=== PATIENT | female | born 1995 | race Caucasian/White ===

== ENCOUNTER → 2016-12-13 | Outpatient (REF) | payer OTHER | LOC: M SFHCLERA 17:19 | PROVIDERS: ATTEND Physician Assistant | DX: J02.9 Acute pharyngitis, unspecified (principal) ==

== ENCOUNTER → 2017-12-23 | Outpatient (CLI) | payer OTHER ==
[2017-12-23 19:05] LABS: CORTISOL BASELINE 15.2 UG/DL (4.3-22.4)
[2017-12-23 19:15] LABS: FREE T4 0.94 NG/DL (0.76-1.46); THYROID STIMULATING HORMONE 0.115 uIU/ML (0.358-3.740)
[2017-12-26 00:07] LABS: THYROID STIMULATING IMMUNOGLOB <0.10 IU/L (0.00-0.55)
== END ==
LOC: M LRY 12:58
DX: R94.6 Abnormal results of thyroid function studies (principal)
CPT/HCPCS: 84443

== ENCOUNTER → 2018-01-07 | Outpatient (CLI) | payer OTHER | LOC: M RAD 08:32 | DX: E05.90 Thyrotoxicosis, unspecified without thyrotoxic crisis or storm (principal) ==

== ENCOUNTER → 2019-12-20 | Outpatient (CLI) | payer OTHER ==
[2019-12-20 15:51] LABS: FREE T4 0.96 NG/DL (0.76-1.46); THYROID STIMULATING HORMONE 0.654 uIU/ML (0.358-3.740)
== END ==
LOC: M PLALAB 12:13
PROVIDERS: ATTEND Nurse Practitioner Family
DX: R94.6 Abnormal results of thyroid function studies (principal)

== ENCOUNTER → 2020-10-30 | Outpatient (REF) | payer OTHER, SELFPAY, MEDICAID ==
[2020-10-30 21:34] LABS: APPEARANCE, URINE HAZY (CLEAR); BACTERIA, URINE AUTO 2+ (NEGATIVE); BILIRUBIN, URINE AUTO NEGATIVE (NEGATIVE); BLOOD, URINE BLOOD NEGATIVE (NEGATIVE); COLOR, URINE YELLOW (YELLOW); GLUCOSE, URINE (UA) AUTO NEGATIVE (NEGATIVE); KETONE, URINE AUTO NEGATIVE (NEGATIVE); LEUKOCYTE ESTERASE, URINE AUTO 2+ (NEGATIVE); NITRITE, URINE AUTO POSITIVE (NEGATIVE); PROTEIN, URINE AUTO NEGATIVE (NEGATIVE); RBC, URINE AUTO 2 /HPF (0-3); SQUAMOUS EPITHELIAL CELL UR AU 2 /HPF (0-6); UROBILINOGEN, URINE AUTO 0.2 mg/dL (0.0-2.0); WBC, URINE AUTO 14 /HPF (0-3)
== END ==
LOC: M LAB REF 21:23
PROVIDERS: ATTEND Physician Assistant Medical
DX: N39.0 Urinary tract infection, site not specified (principal)

== ENCOUNTER → 2020-11-02 | Outpatient (CLI) | payer OTHER ==
--- NOTE | 2020-11-02 10:57 | REP ---
INDICATION: MEMORY LOSS, PTSD. COMPARISON: None. TECHNIQUE: Axial T1, T2, FLAIR, gradient echo and diffusion-weighted images obtained. Postcontrast multiplanar T1 weighted images obtained. FINDINGS: No evidence of restricted diffusion to suggest acute infarction. No gradient echo susceptibility to suggest hemorrhage. The ventricles and extra-axial CSF spaces are within normal limits. No mass effect or midline shift. No abnormal fluid collections. Paranasal sinuses and mastoid air cells are clear. Following contrast, no abnormal enhancement. IMPRESSION: Normal examination. <Electronically signed by Tony Swanson > 11/02/20 [id number]
== END ==
LOC: M PLARAD 08:08
PROVIDERS: ATTEND Nurse Practitioner Family
DX: R41.3 Other amnesia (principal); F43.12 Post-traumatic stress disorder, chronic; F51.04 Psychophysiologic insomnia

== ENCOUNTER → 2021-04-10 | Outpatient (CLI) | payer OTHER ==
[~2021-04-10] MED LIST: ISOVUE-370 76% 100ML VIAL As Ordered ONE
--- NOTE | 2021-04-10 13:30 | REP ---
INDICATION: THYROTOXICOSIS / ABD PAIN. COMPARISON: None. TECHNIQUE: Real-time sonographic evaluation of thyroid performed. FINDINGS: Right lobe of thyroid measures 5.2 x 1.7 x 1.6 cm and left lobe 4.8 x 1.6 x 1.7 cm.There is a heterogeneous isoechoic nodule in the right upper pole measuring 5 mm in diameter. In the right lower pole there is a heterogeneous predominantly solid nodule which is hypoechoic measuring 1.4 x 1.0 x 1.0 cm. IMPRESSION: Two solid nodules right lobe, the larger measures 1.4 cm maximally and is located in the lower pole. According to TI-RADS criteria, this is a TR 4 lesion. With a maximum diameter of 1.4 cm, six-month follow-up exam is recommended. <Electronically signed by Griffin Her > 04/10/21 [id number]
--- NOTE | 2021-04-10 13:33 | REP ---
INDICATION: THYROTOXICOSIS / ABD PAIN. COMPARISON: Multiple the latest 04/01/2011 without contrast TECHNIQUE: Standard helical technique before and after the intravenous administration of 100 cc Isovue 370 FINDINGS: The lung bases are clear and unchanged. The pre contrast enhanced portion examination shows a patent splenic densities to be within normal limits. There is no nephroureterolithiasis, hydronephrosis, or proximal hydroureter. Contrast-enhanced portion examination shows the liver, gallbladder, spleen, pancreas, adrenal glands, and kidneys to be within normal limits. The abdominal aorta and para-aortic regions are within normal limits. There is no mass or adenopathy. There is no free fluid or free air. The bowel loops and the mesenteries are within normal limits. Bone window technique throughout the examination shows the osseous structures to be within normal limits. IMPRESSION: CT findings are within normal limits. <Electronically signed by Sergei Jimenez > 04/10/21 [id number]
== END ==
LOC: M RAD 12:32
PROVIDERS: ATTEND Nurse Practitioner Family
DX: E05.90 Thyrotoxicosis, unspecified without thyrotoxic crisis or storm (principal); R10.84 Generalized abdominal pain
CPT/HCPCS: 74170; 76536; Q9967

== ENCOUNTER → 2021-06-18 | Outpatient (REF) | payer OTHER, MEDICAID | LOC: M LAB REF 21:56 | PROVIDERS: ATTEND Physician Assistant Medical | DX: R50.9 Fever, unspecified (principal); R05.9 Cough, unspecified ==

== ENCOUNTER → 2022-01-15 | Outpatient (CLI) | payer OTHER | LOC: M RAD 10:45 | PROVIDERS: ATTEND Nurse Practitioner Family | DX: E04.2 Nontoxic multinodular goiter (principal) ==

== ENCOUNTER → 2022-01-31 | Outpatient (CLI) | payer OTHER | LOC: M RAD 13:08 | PROVIDERS: ATTEND Obstetrics & Gynecology | DX: N93.9 Abnormal uterine and vaginal bleeding, unspecified (principal) ==

== ENCOUNTER → 2022-01-31 | Outpatient (CLI) | payer OTHER | LOC: M RAD 13:09 | PROVIDERS: ATTEND Nurse Practitioner Family | DX: R22.1 Localized swelling, mass and lump, neck (principal) | CPT/HCPCS: 70491; Q9967 ==

== ENCOUNTER → 2023-08-11 | Outpatient (CLI) | payer OTHER ==
[~2023-08-11] MED LIST changes: +E-Z-PAQUE 96% w/w SUSP 176GM BTL As Ordered ONE; -ISOVUE-370 76% 100ML VIAL As Ordered ONE
== END ==
LOC: M RAD 07:18
PROVIDERS: ATTEND Internal Medicine Gastroenterology
DX: R13.10 Dysphagia, unspecified (principal); R14.0 Abdominal distension (gaseous)

== ENCOUNTER → 2023-09-26 | Outpatient (CLI) | payer OTHER ==
[~2023-09-26] VITALS: Ht 154.9 cm; Wt 66.8 kg
[~2023-09-26] MED LIST changes: -E-Z-PAQUE 96% w/w SUSP 176GM BTL As Ordered ONE; +GABA-282
[2023-09-26] MEDS: ACETAMINOPHEN 650MG PO PRIOR TO INFUSION PO ONE (15:16)
[2023-09-26] MEDS: diphenhydrAMINE 25MG PO PRIOR TO INFUSION PO ONE (15:16)
[2023-09-26 15:17] VITALS: BP 131/71; O2SAT 95
[2023-09-26] MEDS: IRON SUCROSE 200 MG in NS 100 ML OVER 1 HR IV ONE (15:17)
[2023-09-26 16:35] VITALS: BP 130/80; O2SAT 98
== END ==
LOC: M INFU 14:56
PROVIDERS: ATTEND Internal Medicine Hematology & Oncology
DX: E61.1 Iron deficiency (principal); Z88.0 Allergy status to penicillin; Z88.2 Allergy status to sulfonamides
CPT/HCPCS: 96365; J1756

== ENCOUNTER 2023-10-10 15:00 | Outpatient (CLI) | payer OTHER ==
[~2023-10-10] VITALS: Ht 154.9 cm; Wt 65.9 kg
[2023-10-10 15:00] VITALS: BP 126/72; O2SAT 98
[2023-10-10] MEDS: diphenhydrAMINE 25MG CAP PO ONE (15:16)
[2023-10-10] MEDS: ACETAMINOPHEN TAB 650MG DOSE (2X325MG) PO ONE (15:16)
[2023-10-10] MEDS: IRON SUCROSE 200 MG in NS 100 ML OVER 1 HR IV ONE (15:27)
[2023-10-10 16:40] VITALS: BP 136/79; O2SAT 99
== END 2023-10-10 16:40 ==
LOC: M INFU 15:00
PROVIDERS: ATTEND Internal Medicine Hematology & Oncology
DX: D50.9 Iron deficiency anemia, unspecified (principal); Z88.0 Allergy status to penicillin; Z88.2 Allergy status to sulfonamides
CPT/HCPCS: 96365; J1756

== ENCOUNTER → 2024-12-16 | Outpatient (REF) | payer OTHER ==
[~2024-12-16] MED LIST changes: +GABA-1172 PO; -GABA-282
== END ==
LOC: M SFHCRHEU 15:25
PROVIDERS: ATTEND Internal Medicine
DX: M25.50 Pain in unspecified joint (principal)

== ENCOUNTER → 2025-04-26 | Outpatient (CLI) | payer OTHER | LOC: M WHC 10:23 | PROVIDERS: ATTEND Obstetrics & Gynecology | DX: N93.9 Abnormal uterine and vaginal bleeding, unspecified (principal); Z53.9 Procedure and treatment not carried out, unspecified reason ==

== ENCOUNTER → 2025-05-23 | Outpatient (REF) | payer OTHER | LOC: M LAB REF 17:08 | PROVIDERS: ATTEND Physician Assistant Medical | DX: J02.9 Acute pharyngitis, unspecified (principal) ==